=== PATIENT | male | born 1965 | race African-American/Black ===

== ENCOUNTER 2016-12-04 09:08 | Emergency (ER) | payer SELFPAY | END 2016-12-04 10:50 | disposition home or self-care (01) | LOC: CED 09:08 → CFTX 09:08 | DX: M54.42 Lumbago with sciatica, left side (principal); I10 Essential (primary) hypertension; E11.9 Type 2 diabetes mellitus without complications; Z79.82 Long term (current) use of aspirin | CPT/HCPCS: 96372; 99283; J1885 ==